=== PATIENT | female | born 1955 | race Two or more races ===

== ENCOUNTER 2020-12-27 11:04 | Emergency (ER) | payer OTHER ==
[~2020-12-27] VITALS: Ht 154.9 cm; Wt 63.5 kg
[~2020-12-27 11:04] MED LIST: LIBRAX CAPSULE1 CA1 PO; PREVACID30 MG PO; ZANTAC150 MG PO; [UNRECOGNIZED DRUG - OTHER]
[2020-12-27] MEDS ORDERED: PROMETRIUM200 MG (11:18)
[2020-12-27] MEDS ORDERED: SIMVASTATIN80 MG (11:19)
[2020-12-27] MEDS ORDERED: ULTRAM50 MG PO (16:36)
[2020-12-27] MEDS ORDERED: BACTRIM DS TAB1 EACH PO (16:36)
[2020-12-27] MEDS ORDERED: TAMS0.4C PO (16:36)
== END 2020-12-27 16:37 | disposition home or self-care (01) ==
LOC: ER 11:04
DX: N20.0 Calculus of kidney (principal); R10.84 Generalized abdominal pain